=== PATIENT | female | born 1950 | race Caucasian/White ===

== ENCOUNTER → 2016-11-26 | Outpatient (CLI) | payer OTHER ==
[~2016-11-26] MED LIST: ADVIN25/60 INH; ALBU1AER9 INH; AMOXPOW3 PO; AMT25 PO; APPL300T3 PO; ASPI81TA21 PO; ATOR-22 PO; CLB/200 PO; CLOP1TAB54 PO; CLTP PO; DEXT1TAB50 PO; DIAZ-165 PO; Daliresp PO; FESO8TAB PO; ISOS60TA25 PO; METO50TA7 PO; NITR0.4S UT; OXYC-57 PO; SNG10 PO; XNX25 PO; [UNRECOGNIZED DRUG - OTHER] PO
[2016-11-26 13:07] LABS: BLOOD UREA NITROGEN 11 mg/dl (7-18); BUN/CREATININE RATIO 11.5 (10-20); CREATININE 0.95 mg/dl (0.60-1.20)
== END | disposition home or self-care (01) ==
LOC: C.LAB 11:26
PROVIDERS: ATTEND Surgery Vascular Surgery
DX: I65.22 Occlusion and stenosis of left carotid artery (principal); C34.01 Malignant neoplasm of right main bronchus; Z72.0 Tobacco use